=== PATIENT | female | born 1980 | race Caucasian/White ===

== ENCOUNTER 2018-04-21 09:16 | Day surgery (SDC) | payer OTHER ==
[~2018-04-21 09:16] MED LIST: LISINOPRIL10 MG PO; SYNTHROID112 MCG PO
[2018-04-21] MEDS ORDERED: PERCOCET 5-3251 EACH PO (13:38)
== END 2018-04-21 16:30 | disposition home or self-care (01) ==
LOC: CIR.AMB 09:16
DX: E06.3 Autoimmune thyroiditis (principal)